=== PATIENT | female | born 1960 | race Caucasian/White ===

== ENCOUNTER → 2020-04-09 14:14 | Outpatient (CLI) | payer OTHER, SELFPAY | PROVIDERS: PCP Registered Nurse Diabetes Educator; Visit Provider Registered Nurse Diabetes Educator | DX: R39.15 Urgency of urination (principal) | CPT/HCPCS: 87077; 87086; 87186 ==

== ENCOUNTER → 2020-06-18 07:53 | Outpatient (CLI) | payer OTHER, SELFPAY ==
[2020-06-18 09:01] LABS: Add Manual Diff / Slide Review NO; Basophils Absolute Auto 0 /uL (0-100); Basophils Percent Auto 0.6 % (0-2); Eosinophils Absolute Auto 100 /uL (0-450); Eosinophils Percent Auto 2.2 % (2-4); Hematocrit 39.7 % (36-46); Hemoglobin 13.3 g/dL (12.0-16.0); Lymphocytes Absolute Auto 1200 /uL (1100-4500); Lymphocytes Percent Auto 28.4 % (25-40); Mean Corpuscular HGB Conc 33.5 % (30-36); Mean Corpuscular Hemoglobin 30.5 PG (26-34); Mean Corpuscular Volume 90.9 fL (80-100); Monocytes Absolute Auto 300 /uL (0-900); Monocytes Percent Auto 6.2 % (3-14); Neutrophils Absolute Auto 2600 /uL (1500-7000); Neutrophils Percent Auto 62.6 % (50-75); Platelet Count 232 X10^3/uL (150-400); Red Blood Cell Count 4.37 X10^6/uL (4.0-5.2); Red Cell Distribution Width 13.1 % (11.6-14.8); White Blood Cell Count 4.2 X10^3/uL (4.5-11.0)
[2020-06-18 09:58] LABS: Alanine Aminotransferase 17 IU/L (<35); Albumin 4.3 g/dL (3.5-5.0); Albumin Globulin Ratio 1.5 (1.0-2.8); Alkaline Phosphatase 87 U/L (38-126); Aspartate Aminotransferase 35 IU/L (14-36); BUN Creatinine Ratio 12.1 (6-22); Bilirubin Total 0.5 mg/dL (0.2-1.3); Blood Urea Nitrogen 12 mg/dL (7-17); Calcium 9.5 mg/dL (8.4-10.2); Carbon Dioxide 29 mmol/L (22-32); Chloride 99 mmol/L (98-107); Cholesterol 201 mg/dL (140-199); Globulin 2.8 g/dL (1.7-4.1); Glucose 90 mg/dL (80-110); HDL Cholesterol 79 mg/dL (40-60); HEMOLYSIS < 15 (0-50); LDL Cholesterol Calculated 109 mg/dL (<100); Potassium 4.8 mmol/L (3.4-5.1); Sodium 132 mmol/L (137-145); Total Protein 7.1 g/dL (6.3-8.2); Triglycerides 66 mg/dL (35-150)
[2020-06-18 10:01] LABS: HEMOLYSIS < 15 (0-50); Iron 116 ug/dL (37-170)
[2020-06-18 10:12] LABS: Percent Iron Saturation 32 % (15-50); Total Iron Binding Capacity 357 ug/dL (265-497); Transferrin 280 mg/dL (206-381)
[2020-06-18 10:26] LABS: Creatinine Urine Random 65.3 mg/dL; Ferritin 23 ng/mL (11-264)
[2020-06-18 10:29] LABS: Microalbumi Creatinin Ratio Ur 12.2 ug/mg CR (<30); Microalbumin Urine Random 0.8 mg/dL (0-1.6)
[2020-06-18 12:43] LABS: Free T4, Direct Thyroxine 1.56 ng/dL (0.78-2.19)
== END ==
PROVIDERS: PCP Registered Nurse Diabetes Educator; Referring Provider Registered Nurse Diabetes Educator; Visit Provider Registered Nurse Diabetes Educator
DX: Z00.00 Encounter for general adult medical examination without abnormal findings (principal); D64.9 Anemia, unspecified; E03.9 Hypothyroidism, unspecified; E11.9 Type 2 diabetes mellitus without complications; E89.0 Postprocedural hypothyroidism; R94.4 Abnormal results of kidney function studies
CPT/HCPCS: 36415; 80053; 80061; 82043; 82570; 82728; 83036; 83540; 83550; 84439; 84443; 85025

== ENCOUNTER → 2020-07-30 07:11 | Outpatient (CLI) | payer OTHER, SELFPAY ==
[2020-07-30 09:08] LABS: BUN Creatinine Ratio 12.3 (6-22); Blood Urea Nitrogen 13 mg/dL (7-17); Calcium 9.3 mg/dL (8.4-10.2); Carbon Dioxide 28 mmol/L (22-32); Chloride 106 mmol/L (98-107); Estimated Glomerular Filt Rate 52.5 mL/min (>60); Glucose 74 mg/dL (80-110); HEMOLYSIS < 15 (0-50); Potassium 4.3 mmol/L (3.4-5.1); Sodium 136 mmol/L (137-145)
[2020-07-30 10:13] LABS: Free T4, Direct Thyroxine 1.52 ng/dL (0.78-2.19)
== END ==
PROVIDERS: PCP Registered Nurse Diabetes Educator; Referring Provider Registered Nurse Diabetes Educator; Visit Provider Registered Nurse Diabetes Educator
DX: E87.1 Hypo-osmolality and hyponatremia (principal); E03.9 Hypothyroidism, unspecified
CPT/HCPCS: 36415; 80048; 84439; 84443

== ENCOUNTER → 2020-08-03 11:10 | Outpatient (CLI) | payer OTHER, SELFPAY ==
--- NOTE | 2020-08-03 11:12 | DI.US.S_ITS ---
PROCEDURE: US RENAL COMPLETE INDICATIONS: CKD3 TECHNIQUE: Real-time scanning was performed of the kidneys and bladder, with image documentation. COMPARISON: None. FINDINGS: Kidneys: Kidneys are normal in size. Mildly increased generalized kidney echogenicity can be seen. Right kidney measures 9.1 cm long; left kidney measures 8.7 cm long. Right renal cortical thickness is 1.3 cm; left renal cortical thickness is 1.5 cm. Renal cortical echotexture is normal. No hydronephrosis or nephrolithiasis. No suspicious solid mass lesions. Bladder: Pre-void bladder volume is 180 mL. Post-void residual is 43 mL. Pre-void images demonstrate no intraluminal masses or stones. On pre-void images, both ureteral jets are noted with color Doppler interrogation. (Of note, ureteral jets may not be detectable in up to 25% of cases due to insufficient differences in specific gravity between ureteral and bladder urine). Miscellaneous: No free pelvic fluid. IMPRESSION: Mildly increased generalized echogenicity can be seen of the kidneys, which is consistent with the given history of chronic renal disease. No hydronephrosis is seen. Moderate postvoid residual, 43 cc. Dictated by: Joseph Kelsey M.D. on 08/03/2020 at 12:59 Approved by: Joseph Kelsey M.D. on 08/03/2020 at 13:01
== END ==
PROVIDERS: PCP Registered Nurse Diabetes Educator; Referring Provider Registered Nurse Diabetes Educator; Visit Provider Registered Nurse Diabetes Educator
DX: N18.30 Chronic kidney disease, stage 3 unspecified (principal)
CPT/HCPCS: 76770

== ENCOUNTER → 2020-09-15 08:00 | Outpatient (CLI) | payer OTHER, SELFPAY ==
[2020-09-15 09:43] LABS: TSH w/ Reflex to FT4 4.77 uIU/mL (0.47-4.68)
== END ==
PROVIDERS: PCP Registered Nurse Diabetes Educator; Referring Provider Registered Nurse Diabetes Educator; Visit Provider Registered Nurse Diabetes Educator
DX: E89.0 Postprocedural hypothyroidism (principal)
CPT/HCPCS: 36415; 84439; 84443

== ENCOUNTER → 2020-10-20 08:36 | Outpatient (CLI) | payer OTHER, SELFPAY ==
[2020-10-20 10:30] LABS: TSH w/ Reflex to FT4 1.45 uIU/mL (0.47-4.68)
== END ==
PROVIDERS: PCP Registered Nurse Diabetes Educator; Referring Provider Registered Nurse Diabetes Educator; Visit Provider Registered Nurse Diabetes Educator
DX: E89.0 Postprocedural hypothyroidism (principal)
CPT/HCPCS: 36415; 84443

== ENCOUNTER → 2021-02-07 17:25 | Outpatient (CLI) | payer OTHER, SELFPAY ==
--- NOTE | 2021-02-07 17:26 | DI.RAD.S_ITS ---
PROCEDURE: XR RIBS LT MIN 3V W CXR1V INDICATIONS: eval pain and TTP L posterior ribcage x 4 months TECHNIQUE: 2 views of the left ribs were acquired, along with a single view chest. COMPARISON: None. FINDINGS: Surgical changes and devices: None. Bones and chest wall: No fractures or dislocations. No suspicious bony lesions. Overlying soft tissues appear unremarkable. Lungs and pleura: No pleural effusions or pneumothorax. Lungs appear clear. Mediastinum: Mediastinal contours appear normal. Heart size is normal. IMPRESSION: Normal for age, source of current rib pain symptoms is not seen. Dictated by: Bernabe Gonzalez M.D. on 02/08/2021 at 11:26 Approved by: Bernabe Gonzalez M.D. on 02/08/2021 at 11:27
== END ==
PROVIDERS: PCP Registered Nurse Diabetes Educator; Referring Provider Registered Nurse Diabetes Educator; Visit Provider Registered Nurse Diabetes Educator
DX: R07.81 Pleurodynia (principal)
CPT/HCPCS: 71101

== ENCOUNTER → 2021-03-14 10:08 | Outpatient (CLI) | payer OTHER, SELFPAY ==
--- NOTE | 2021-03-14 10:09 | DI.RAD.S_ITS ---
PROCEDURE: XR DEXA AXIAL SKELETON INDICATIONS: reeval osteopenia COMPARISON: None. FINDINGS: This blank DEXA report has been sent in error by the PACS system. The correct and complete report will be forthcoming in 1-2 days. Thank you for your patience and understanding. Dictated by: Aishwarya Borrero MD, PhD on 03/14/2021 at 11:28 Approved by: Aishwarya Borrero MD, PhD on 03/14/2021 at 11:28
== END ==
PROVIDERS: PCP Registered Nurse Diabetes Educator; Referring Provider Registered Nurse Diabetes Educator; Visit Provider Registered Nurse Diabetes Educator
DX: M85.88 Other specified disorders of bone density and structure, other site (principal); Z78.0 Asymptomatic menopausal state; E11.9 Type 2 diabetes mellitus without complications
CPT/HCPCS: 77080

== ENCOUNTER → 2021-07-05 09:05 | Outpatient (CLI) | payer OTHER, SELFPAY ==
[2021-07-05 12:14] LABS: COVID19 -Nasal RAPID Negative (Negative)
== END ==
PROVIDERS: PCP Registered Nurse Diabetes Educator; Visit Provider Surgery
DX: Z01.812 Encounter for preprocedural laboratory examination (principal); Z20.822 Contact with and (suspected) exposure to COVID-19
CPT/HCPCS: 87635; C9803

== ENCOUNTER 2021-07-08 06:41 | Day surgery (SDC) | payer OTHER, SELFPAY ==
[2021-07-08] VITALS (11 sets, daily range): BP systolic 96–130; BP diastolic 50–81; PULSE 44–64; RESP 10–99; TEMP 36.3–36.8; O2SAT 8–100; BMI 19.6
--- NOTE | 2021-07-08 | PATH_ITS ---
[facility] Accession Number: [id number] . 01 Material submitted: . colon - SIGMOID POLYP . 01 Clinical history: . SDC . 02 Diagnosis: Sigmoid Colon, Polyp, Biopsy: Tubular adenoma. MRV 07/11/2021 1248 Local . 02 Electronically signed: . Bella Brennan MD, Pathologist NPI- [id number] . 01 Gross description: . SIGMOID POLYP: Received in formalin is 1 fragment(s) of dennison, soft tissue measuring 0.6 x 0.3 x 0.2 cm submitted entirely in 1 cassette(s) /QBJ 07/09/2021 0918 Local . 02 Pathologist provided ICD-10: D12.5 . 02 CPT . 411039 Performed at: 01 [facility] [address] [id number] MD [place] MD Phone: [phone] Performed at: 02 [facility] [place] [address] [place], [place] [id number] MD Bella Brennan MD Phone: [phone]
[2021-07-08] MEDS: LACTATED RINGERS 1,000 ML 42 ML IV (07:34)
[2021-07-08] MEDS: fentaNYL 250 MCG/5 ML INJ IV (07:47)
[2021-07-08] MEDS: MIDAZOLAM 5 MG/5 ML VIAL IV (07:48)
--- NOTE | 2021-07-08 07:50 | P.HP_ITS ---
History of Present Illness History of Present Illness Date Patient Seen: 07/08/21 Time Patient Seen: 07:50 Chief complaint: SDC Narrative: The patient presents for colorectal sreening. Previous colonoscopy 10 years ago normal. No personal or family history of colon cancer. On further history denies any recent gastrointestinal symptoms. No nausea, vomiting, abdominal pain, loss of appetite, unexplained weight loss, change in bowel habits, diarrhea, constipation, melena, hematochezia, or bright red blood per rectum. Patient History Medical History Anemia CKD (chronic kidney disease) stage 3, GFR 30-59 ml/min Diabetes type 2, controlled Hypothyroidism Osteopenia Postprocedural hypothyroidism Postprocedural hypothyroidism Renal function test abnormal Family & Social History Family History Grandmother Hypertension Overweight Mother Age: 84 Pacemaker RA (rheumatoid arthritis) Social History: household members spouse Tobacco & Substance use: Smoking Status Never smoker alcohol intake frequency 0-2 drinks per day Substance Use Type does not use Meds Home Medications and Allergies Home Medications Medication Instructions Recorded Confirmed Type Synthroid 100 mcg tablet 100 mcg PO DAILY #90 tab NS 10/22/20 07/08/21 Rx (levothyroxine) metformin 500 mg tablet,extended 500 mg PO DAILY #90 tab 03/18/21 07/08/21 Rx release 24 hr Allergies Allergy/AdvReac Type Severity Reaction Status Date / Time No Known Drug Allergies Allergy Verified 07/08/21 07:05 Exam Vital Signs (past 8 hours): - 07/08/21 07:17 Temperature 98.1 F Pulse Rate 64 Respiratory Rate 16 Blood Pressure 130/81 Pulse Oximetry 99 Oxygen Delivery Method Room Air Narrative Exam Narrative: Constitutional-She is oriented to person, place and time. No apparent distress Cardiovascular- regular rate, no peripheral edema Pulmonary-unlabored respiratory effort, no audible wheezing Abdominal-soft, non-tender, non-distended Musculoskeletal-no cyanosis or clubbing Neurological-nonfocal, normal strength throughout, Assessment & Plan Assessment and plan (1) Screening for colon cancer: Status: Acute Assessment & Plan narrative: The patient requires colorectal screening and colonoscopy is recommended. Technical details were discussed. Risks, benefits, alternatives explained. Risks including but not limited to myocardial infarction, aspiration, bleeding, pain, missed lesion, incomplete examination, need for further radiographic studies, colonic perforation, and need for major abdominal surgery were discussed. All questions were answered to their satisf action, and they are in agreement with this plan. Time Spent With Patient Critical Care time: I spent a total of [] minutes of critical care time on this patient's care today; this time is exclusive of procedural time.
[2021-07-08] MEDS: ONDANSETRON 4 MG/2 ML INJ IV (07:53)
--- NOTE | 2021-07-08 08:17 | PM.OP.COLON ---
Operative Date/Time/Diagnoses Date of procedure: 07/08/21 Time of procedure: 08:18 Pre-op diagnosis: screening colonoscopy Post-op diagnosis: same Procedure & Clinicians Study performed: Colonoscopy Same procedure as scheduled: Yes Indications: Screening Surgeon: Surya Chu Procedure Notes Procedure in detail: Medications: Conscious sedation using 4 mg IV midazolam and 200mcg IV of fentanyl The history and physical was performed/updated and the patient is ASA class is 2. The procedure was discussed in detail with the patient. Potential risks complications including infection, bleeding, missed diagnosis, perforation, need for surgery, and were explained. Their questions were answered and informed consent was obtained. Patient was brought to the procedure room and placed standard monitoring equipment. The patient's vital signs were monitored continuously throughout the entire procedure. Prior to starting time-out was performed. The patient was placed in the left lateral recumbent position. Procedural sedation was administered. Examination began with a thorough inspection of the perianal area there was no evidence of fissures, fistulae, external hemorrhoids or cutaneous malignancy. The colonoscopy scope was then placed into the anal canal and was advanced to the cecum, which was identified by the ileocecal valve, the appendiceal orifice and the confluence of the taenia. The scope was then slowly withdrawn examining colon thoroughly in all directions, irrigating it of any residual stool. FINDINGS 1. 5 mm sigmoid polyp removed with biopsy forceps 2. No masses or colitis The patient tolerated the procedure well. They will be discharged once criteria are met. The prep was of good/excellent quality. The withdrawl time was 7 minutes. The sedation time was 22 minutes. Specimen(s): other (Sigmoid polyp) Complications: none Impression: Colonic polyp Post-procedure Recommendations: Colonoscopy in 5 years Disposition: same day surgery
[2021-07-08] MEDS: LACTATED RINGERS 1,000 ML 200 ML IV (09:12)
--- NOTE | 2021-07-08 09:22 | SUR.PHASEII ---
0915 Pt transferred to room 4 OPD with SBAR repot to Regina PATEL. Pt awake and alert, less sleepy now. No further nausea/dry heaves. Plan to rest for 15 more minutes and then re-eval for discharge.
--- NOTE | 2021-07-08 10:29 | SUR.PHASEII ---
pt was awaiting ride. Pt states she feels better and is ready to go home.
== END 2021-07-08 10:31 | disposition home or self-care (01) ==
PROVIDERS: PCP Registered Nurse Diabetes Educator; Referring Provider Surgery; Visit Provider Surgery
PROC: 0DJD8ZZ Inspection of Lower Intestinal Tract, Via Natural or Artificial Opening Endoscopic (ICD-10-PCS; CPT 45378; principal; 2021-07-08 07:45)
DX: Z12.11 Encounter for screening for malignant neoplasm of colon (principal); E11.9 Type 2 diabetes mellitus without complications; E03.9 Hypothyroidism, unspecified; N18.30 Chronic kidney disease, stage 3 unspecified; D12.5 Benign neoplasm of sigmoid colon
CPT/HCPCS: 45380; 82962; 99152; J2250; J2405; J3010

== ENCOUNTER → 2021-07-12 07:00 | Outpatient (CLI) | payer OTHER, SELFPAY ==
[2021-07-12 08:22] LABS: Appearance Urine UA CLEAR; Bilirubin Urine UA NEGATIVE (NEGATIVE); Color Urine UA YELLOW; Glucose Urine UA NEGATIVE (Negative); Ketones Urine UA NEGATIVE (NEGATIVE); Leukocyte Esterase Urine UA NEGATIVE (NEGATIVE); Nitrite Urine UA NEGATIVE (Negative); Occult Blood Urine UA NEGATIVE (Negative); Protein Urine UA NEGATIVE (Negative); Urobilinogen Urine UA 0.2 E.U./dL (0.2)
[2021-07-12 08:28] LABS: Bacteria Urine None Seen; Culture Indicated Urine Cult Not Indicated; RBC Urine None Seen (0-5/HPF); Urine Comments Microscopic Normal; WBC Urine None Seen (0-5/HPF)
[2021-07-12 08:30] LABS: Hemoglobin A1C% w Est Avg Glu 5.3 % (4.0-6.0)
[2021-07-12 08:32] LABS: Hematocrit 34.5 % (36-46); Hemoglobin 11.7 g/dL (12.0-16.0); Mean Corpuscular Hemoglobin 30.7 PG (26-34); Mean Corpuscular Volume 90.1 fL (80-100); Platelet Count 267 X10^3/uL (150-400); Red Blood Cell Count 3.83 X10^6/uL (4.0-5.2); Red Cell Distribution Width 13.3 % (11.6-14.8); White Blood Cell Count 4.4 X10^3/uL (4.5-11.0)
[2021-07-12 08:47] LABS: Alanine Aminotransferase 14 IU/L (<35); Albumin 4.2 g/dL (3.5-5.0); Albumin Globulin Ratio 1.6 (1.0-2.8); Alkaline Phosphatase 65 U/L (38-126); Aspartate Aminotransferase 30 IU/L (14-36); Bilirubin Total 0.5 mg/dL (0.2-1.3); Blood Urea Nitrogen 10 mg/dL (7-17); Calcium 9.4 mg/dL (8.4-10.2); Carbon Dioxide 29 mmol/L (22-32); Chloride 103 mmol/L (98-107); Cholesterol 196 mg/dL (140-199); Estimated Glomerular Filt Rate 49.6 mL/min (>60); Globulin 2.7 g/dL (1.7-4.1); Glucose 93 mg/dL (80-110); HDL Cholesterol 85 mg/dL (40-60); HEMOLYSIS < 15 (0-50); LDL Cholesterol Calculated 97 mg/dL (<100); Potassium 3.8 mmol/L (3.4-5.1); Sodium 137 mmol/L (137-145); Total Protein 6.9 g/dL (6.3-8.2); Triglycerides 72 mg/dL (35-150)
[2021-07-12 09:00] LABS: Microalbumin Urine Random < 0.6 mg/dL (0-1.6)
[2021-07-12 09:21] LABS: TSH w/ Reflex to FT4 8.01 uIU/mL (0.47-4.68)
[2021-07-12 09:49] LABS: Free T4, Direct Thyroxine 1.38 ng/dL (0.78-2.19)
== END ==
PROVIDERS: PCP Registered Nurse Diabetes Educator; Referring Provider Registered Nurse Diabetes Educator; Visit Provider Registered Nurse Diabetes Educator
DX: E03.9 Hypothyroidism, unspecified (principal); E11.9 Type 2 diabetes mellitus without complications; N18.30 Chronic kidney disease, stage 3 unspecified
CPT/HCPCS: 36415; 80053; 80061; 81001; 82043; 82570; 83036; 84439; 84443; 85027

== ENCOUNTER → 2021-08-13 07:46 | Outpatient (CLI) | payer OTHER, SELFPAY | PROVIDERS: PCP Registered Nurse Diabetes Educator; Visit Provider Nurse Practitioner Family | DX: N39.0 Urinary tract infection, site not specified (principal) | CPT/HCPCS: 87077; 87086; 87186 ==

== ENCOUNTER → 2021-08-30 08:28 | Outpatient (CLI) | payer OTHER, SELFPAY ==
[2021-08-30 10:05] LABS: Hemoglobin 12.7 g/dL (12.0-16.0); Mean Corpuscular HGB Conc 34.2 % (30-36); Mean Corpuscular Hemoglobin 30.4 PG (26-34); Mean Corpuscular Volume 88.9 fL (80-100); Platelet Count 282 X10^3/uL (150-400); Red Blood Cell Count 4.16 X10^6/uL (4.0-5.2); Red Cell Distribution Width 12.4 % (11.6-14.8); White Blood Cell Count 5.9 X10^3/uL (4.5-11.0)
[2021-08-30 10:43] LABS: BUN Creatinine Ratio 13.6 (6-22); Blood Urea Nitrogen 14 mg/dL (7-17); Calcium 9.6 mg/dL (8.4-10.2); Carbon Dioxide 30 mmol/L (22-32); Chloride 102 mmol/L (98-107); Estimated Glomerular Filt Rate 54.1 mL/min (>60); Glucose 83 mg/dL (80-110); HEMOLYSIS < 15 (0-50); Potassium 3.7 mmol/L (3.4-5.1); Sodium 135 mmol/L (137-145)
[2021-08-30 11:11] LABS: TSH w/ Reflex to FT4 1.26 uIU/mL (0.47-4.68)
== END ==
PROVIDERS: PCP Registered Nurse Diabetes Educator; Referring Provider Registered Nurse Diabetes Educator; Visit Provider Registered Nurse Diabetes Educator
DX: D64.9 Anemia, unspecified (principal); E03.9 Hypothyroidism, unspecified; N18.31 Chronic kidney disease, stage 3a
CPT/HCPCS: 36415; 80048; 84443; 85027

== ENCOUNTER → 2021-09-30 16:07 | Outpatient (CLI) | payer OTHER, SELFPAY | PROVIDERS: PCP Registered Nurse Diabetes Educator; Visit Provider Registered Nurse Diabetes Educator | DX: R30.0 Dysuria (principal) | CPT/HCPCS: 87077; 87086; 87186 ==

== ENCOUNTER → 2021-11-04 09:29 | Outpatient (CLI) | payer OTHER, SELFPAY ==
--- NOTE | 2021-11-04 09:31 | DI.RAD.S_ITS ---
PROCEDURE: XR THORACIC SPINE 3V INDICATIONS: eval upper to mid back pain, no trauma TECHNIQUE: 3 views of the thoracic spine were acquired. COMPARISON: None. FINDINGS: Bones: Age indeterminate mild anterior wedge compression deformity at T8 level is seen with up to 32% loss of T8 vertebral body height anteriorly. Mild kyphosis centered at T7-8 level is also seen. Degenerative endplate changes are noted throughout mid to lower thoracic spine. No other compression fracture is seen. No suspicious bony lesions. 12 pairs of ribs are noted, and appear intact where visualized. Soft tissues: No paravertebral stripe thickening. IMPRESSION: Age indeterminate anterior wedge compression deformity at T8 level with up to 32% loss of T8 vertebral body height anteriorly. No other compression fracture or spondylolisthesis. Mild kyphosis centered at T7-8 level. Dictated by: Arlye Durant M.D. on 11/04/2021 at 11:05 Approved by: Arley Durant M.D. on 11/04/2021 at 11:07
== END ==
PROVIDERS: PCP Registered Nurse Diabetes Educator; Referring Provider Registered Nurse Diabetes Educator; Visit Provider Registered Nurse Diabetes Educator
DX: M48.54XA Collapsed vertebra, not elsewhere classified, thoracic region, initial encounter for fracture (principal); M40.204 Unspecified kyphosis, thoracic region; M54.6 Pain in thoracic spine
CPT/HCPCS: 72072

== ENCOUNTER → 2021-11-08 07:29 | Outpatient (CLI) | payer OTHER, SELFPAY ==
[2021-11-08 09:00] LABS: Vitamin D 25 Hydroxy (D3) 36.3 ng/mL (30.0-100.0)
== END ==
PROVIDERS: PCP Registered Nurse Diabetes Educator; Referring Provider Registered Nurse Diabetes Educator; Visit Provider Registered Nurse Diabetes Educator
DX: M85.80 Other specified disorders of bone density and structure, unspecified site (principal)
CPT/HCPCS: 36415; 82306

== ENCOUNTER → 2021-12-06 10:46 | Outpatient (CLI) | payer OTHER, SELFPAY ==
--- NOTE | 2021-12-06 | DI.RAD.S_ITS ---
PROCEDURE: XR KNEE LT 3V INDICATIONS: LEFT KNEE PAIN TECHNIQUE: 3 views of the knee were acquired. COMPARISON: None. FINDINGS: Bones: No fractures or dislocations. No suspicious bony lesions. Soft tissues: No joint effusion. No suspicious soft tissue calcifications. IMPRESSION: No evidence acute bony abnormality of the left knee If clinical suspicion and/or symptoms persist, further assessment with repeat plain films, or advanced imaging (e.g., CT, MRI, or bone scan) may be helpful for further assessment. Dictated by: Judah Pickett M.D. on 12/06/2021 at 15:25 Approved by: Judah Pickett M.D. on 12/06/2021 at 15:26
== END ==
PROVIDERS: PCP Registered Nurse Diabetes Educator; Referring Provider Family Medicine; Visit Provider Family Medicine
DX: M25.562 Pain in left knee (principal)
CPT/HCPCS: 73562

== ENCOUNTER → 2021-12-13 07:22 | Outpatient (CLI) | payer OTHER, SELFPAY ==
[2021-12-13 08:41] LABS: TSH w/ Reflex to FT4 0.16 uIU/mL (0.47-4.68)
[2021-12-13 09:11] LABS: Free T4, Direct Thyroxine 2.52 ng/dL (0.78-2.19)
== END ==
PROVIDERS: PCP Registered Nurse Diabetes Educator; Referring Provider Registered Nurse Diabetes Educator; Visit Provider Registered Nurse Diabetes Educator
DX: E03.9 Hypothyroidism, unspecified (principal)
CPT/HCPCS: 36415; 84439; 84443

== ENCOUNTER → 2022-01-21 12:43 | Outpatient (CLI) | payer OTHER, SELFPAY ==
[2022-01-21 14:24] LABS: TSH w/ Reflex to FT4 4.08 uIU/mL (0.47-4.68)
== END ==
PROVIDERS: PCP Registered Nurse Diabetes Educator; Referring Provider Registered Nurse Diabetes Educator; Visit Provider Registered Nurse Diabetes Educator
DX: E03.9 Hypothyroidism, unspecified (principal)
CPT/HCPCS: 36415; 84443

== ENCOUNTER → 2022-02-28 07:28 | Outpatient (CLI) | payer OTHER, SELFPAY ==
[2022-02-28 09:18] LABS: TSH w/ Reflex to FT4 3.16 uIU/mL (0.47-4.68)
== END ==
PROVIDERS: PCP Registered Nurse Diabetes Educator; Referring Provider Registered Nurse Diabetes Educator; Visit Provider Registered Nurse Diabetes Educator
DX: E03.9 Hypothyroidism, unspecified (principal)
CPT/HCPCS: 36415; 84443

== ENCOUNTER → 2022-06-04 11:34 | Outpatient (CLI) | payer OTHER, SELFPAY ==
--- NOTE | 2022-06-04 | DI.MG.S_ITS ---
BILATERAL DIGITAL SCREENING MAMMOGRAM 3D/2D WITH CAD: 06/04/2022 CLINICAL: Routine screening. Comparison is made to exams dated: 04/25/2021 mammogram and 04/20/2020 mammogram - Outside facility. Both breasts are heterogeneously dense, which may obscure small masses (category c / 51-75% glandular tissue). Current study was also evaluated with a Computer Aided Detection (CAD) system. No significant masses, calcifications, or other findings are seen in either breast. There has been no significant interval change. IMPRESSION: NEGATIVE There is no mammographic evidence of malignancy. A 1 year screening mammogram is recommended. Based on the Tyrer Cuzick model (a risk assessment model) the patient's lifetime risk is 10.8% and her 10 year risk is 4.9%. According to the ACR, ACS, and NCCN guidelines, an annual breast MRI exam along with mammogram is recommended if the patient's lifetime risk is 20% or greater. This exam was interpreted at Station ID: [id number]. NOTE: For mammograms, a report in lay terms will be sent to the patient. Approximately 15% of breast malignancies will not be visualized mammographically. In the management of a palpable breast mass, a negative mammogram must not discourage biopsy of a clinically suspicious lesion. Electronically Signed By: uQinton centeno/gera:06/04/2022 13:53:51 letter sent: Normal Exam ACR BI-RADS Category 1: Negative [id number]
== END ==
PROVIDERS: PCP Registered Nurse Diabetes Educator; Referring Provider Registered Nurse Diabetes Educator; Visit Provider Registered Nurse Diabetes Educator
DX: Z12.31 Encounter for screening mammogram for malignant neoplasm of breast (principal)
CPT/HCPCS: 77063; 77067

== ENCOUNTER → 2022-06-11 12:53 | Outpatient (CLI) | payer OTHER, SELFPAY ==
[2022-06-11 13:16] LABS: Hematocrit 35.2 % (36-46); Hemoglobin 11.9 g/dL (12.0-16.0); Mean Corpuscular HGB Conc 33.8 % (30-36); Mean Corpuscular Hemoglobin 30.4 PG (26-34); Mean Corpuscular Volume 89.8 fL (80-100); Platelet Count 225 X10^3/uL (150-400); Red Blood Cell Count 3.92 X10^6/uL (4.0-5.2); Red Cell Distribution Width 13.3 % (11.6-14.8); White Blood Cell Count 5.9 X10^3/uL (4.5-11.0)
[2022-06-11 13:32] LABS: Alanine Aminotransferase 20 IU/L (<35); Albumin Globulin Ratio 1.3 (1.0-2.8); Alkaline Phosphatase 68 U/L (38-126); Aspartate Aminotransferase 35 IU/L (14-36); BUN Creatinine Ratio 15.5 (6-22); Bilirubin Total 0.2 mg/dL (0.2-1.3); Blood Urea Nitrogen 13 mg/dL (7-17); Calcium 8.8 mg/dL (8.4-10.2); Carbon Dioxide 28 mmol/L (22-32); Chloride 100 mmol/L (98-107); Cholesterol 187 mg/dL (140-199); Estimated Glomerular Filt Rate > 60 mL/min (>60); Glucose 88 mg/dL (80-110); HDL Cholesterol 66 mg/dL (40-60); HEMOLYSIS < 15 (0-50); LDL Cholesterol Calculated 104 mg/dL (<100); Sodium 133 mmol/L (137-145); Triglycerides 86 mg/dL (35-150)
[2022-06-11 14:08] LABS: TSH w/ Reflex to FT4 3.51 uIU/mL (0.47-4.68)
[2022-06-11 15:19] LABS: Creatinine Urine Random 43.6 mg/dL
[2022-06-11 15:23] LABS: Microalbumi Creatinin Ratio Ur 13.7 ug/mg CR (<30); Microalbumin Urine Random 0.6 mg/dL (0-1.6)
[2022-06-11 17:54] LABS: Hemoglobin A1C% w Est Avg Glu 5.7 % (4.0-6.0)
== END ==
PROVIDERS: PCP Registered Nurse Diabetes Educator; Referring Provider Registered Nurse Diabetes Educator; Visit Provider Registered Nurse Diabetes Educator
DX: D64.89 Other specified anemias (principal); E03.9 Hypothyroidism, unspecified; E11.9 Type 2 diabetes mellitus without complications; E89.0 Postprocedural hypothyroidism; N18.31 Chronic kidney disease, stage 3a; R94.4 Abnormal results of kidney function studies
CPT/HCPCS: 36415; 80053; 80061; 82043; 82570; 83036; 84443; 85027

== ENCOUNTER → 2022-06-24 10:08 | Outpatient (CLI) | payer OTHER, SELFPAY ==
--- NOTE | 2022-06-24 10:09 | DI.RAD.S_ITS ---
PROCEDURE: XR RIBS LT 2V INDICATIONS: LEFT rib pain since coughing TECHNIQUE: 2 views of the left ribs were acquired. COMPARISON: None. FINDINGS: Surgical changes and devices: None. Bones and chest wall: No fractures or dislocations. No suspicious bony lesions. Overlying soft tissues appear unremarkable. Lungs and pleura: The visualized lung appears clear. No pleural effusions or pneumothorax are visible. IMPRESSION: No displaced fracture. If there is high concern for occult injury, consider repeat radiography or cross-sectional imaging. Dictated by: Chase Marroquin M.D. on 06/24/2022 at 13:30 Approved by: Chase Marroquin M.D. on 06/24/2022 at 13:31
== END ==
PROVIDERS: PCP Registered Nurse Diabetes Educator; Referring Provider Registered Nurse Diabetes Educator; Visit Provider Registered Nurse Diabetes Educator
DX: R07.81 Pleurodynia (principal)
CPT/HCPCS: 71100

== ENCOUNTER → 2022-12-04 07:56 | Outpatient (CLI) | payer OTHER, SELFPAY ==
[2022-12-04 08:30] LABS: Hemoglobin 12.5 g/dL (12.0-16.0); Mean Corpuscular HGB Conc 33.8 % (30-36); Mean Corpuscular Hemoglobin 30.4 PG (26-34); Mean Corpuscular Volume 89.8 fL (80-100); Platelet Count 233 X10^3/uL (150-400); Red Blood Cell Count 4.12 X10^6/uL (4.0-5.2); Red Cell Distribution Width 13.2 % (11.6-14.8); White Blood Cell Count 5.1 X10^3/uL (4.5-11.0)
[2022-12-04 09:25] LABS: TSH w/ Reflex to FT4 2.76 uIU/mL (0.47-4.68)
[2022-12-05 01:07] LABS: Labcorp Hemoglobin (Hb) A1c 6.1 % (4.8-5.6)
== END ==
PROVIDERS: PCP Registered Nurse Diabetes Educator; Referring Provider Registered Nurse Diabetes Educator; Visit Provider Registered Nurse Diabetes Educator
DX: D64.89 Other specified anemias (principal); E11.9 Type 2 diabetes mellitus without complications; E89.0 Postprocedural hypothyroidism
CPT/HCPCS: 36415; 83036; 84443; 85027

== ENCOUNTER → 2023-03-27 14:46 | Outpatient (CLI) | payer OTHER, SELFPAY ==
--- NOTE | 2023-03-27 14:48 | DI.RAD.S_ITS ---
Bone Density Report Name: AMBROSIO JARRETT Age: 62 Sex: Female Ethnicity: White Date of : 1960 Indication: osteopenia; monitoring treatment; Referring Provider: ANGELIKA RIZO Study: Bone densitometry was performed. Exam Date: March 27, 2023 Accession number: [id number] Bone Density: Region BMD T-score Z-score Classification AP Spine(L1-L4) 0.902 -1.3 0.4 Osteopenia Femoral Neck (Left) 0.707 -1.3 0.2 Osteopenia Total Hip (Left) 0.795 -1.2 0.0 Osteopenia Femoral Neck (Right) 0.720 -1.2 0.3 Osteopenia Total Hip (Right) 0.777 -1.3 -0.1 Osteopenia Total Hip Mean 0.786 -1.3 -0.1 Osteopenia World Health Organization criteria for BMD impression classify patients as: Normal (T-score at or above -1.0), Osteopenia (T-score between -1.0 and -2.5), or Osteoporosis (T-score at or below -2.5). 10-year Fracture Risk: FRAX not reported because: Treated for osteoporosis Previous Exams: -- Region Exam Age BMD T-score BMD Change BMD Change Date g/cm2 vs Baseline vs Previous -- AP Spine (L1-L4) 03/27/2023 62 0.902 -1.3 0.065 (7.8%)# 0.065 (7.8%)# 03/14/2021 60 0.837 -1.9 Total Hip(Left) 03/27/2023 62 0.795 -1.2 0.024 (3.1%)# 0.024 (3.1%)# 03/14/2021 60 0.771 -1.4 Total Hip(Right) 03/27/2023 62 0.777 -1.3 -0.019 (-2.4%)# -0.019 (-2.4%)# 03/14/2021 60 0.797 -1.2 -- *Denotes significance at 95% confidence level, LSC for AP Spine = 0.022 g/cm2, LSC for Total Hip = 0.027 g/cm2 # Denotes dissimilar scan types or analysis methods Impression: The patient has low bone mass, based on the Total Spine T-score. No significant bone loss was observed. Discussion: PATIENT UNDER TREATMENT WITH NO SIGNIFICANT BMD LOSS SINCE LAST EXAM. In an untreated patient, BMD typically declines with age. A lack of decline or gain is usually a sign that treatment is efficacious and fracture risk is reduced. It is important to ask patients whether they are taking their medications and to encourage continued and appropriate compliance with their osteoporosis therapies to reduce fracture risk. It is also important to review their risk factors and encourage appropriate calcium and vitamin D intakes, exercise, fall prevention and other lifestyle measures. Follow-Up: Consider a repeat BMD and Vertebral Fracture Assessment (VFA) exam in 2 years or sooner if medically necessary, to reassess this patient's status. Reported by: ARYA CLARK M.D. on 03/27/2023 3:40:00 PM.
== END ==
PROVIDERS: PCP Registered Nurse Diabetes Educator; Referring Provider Registered Nurse Diabetes Educator; Visit Provider Registered Nurse Diabetes Educator
DX: M81.0 Age-related osteoporosis without current pathological fracture; Z87.310 Personal history of (healed) osteoporosis fracture; Z78.0 Asymptomatic menopausal state; Z79.83 Long term (current) use of bisphosphonates; Z92.23 Personal history of estrogen therapy
CPT/HCPCS: 77080

== ENCOUNTER 2023-05-12 13:33 | Day surgery (SDC) | payer OTHER, SELFPAY ==
[2023-05-12 13:49] VITALS: BMI 18.9
[2023-05-12 14:10] VITALS: BP 131/71; PULSE 50; RESP 16; TEMP 36.6; O2SAT 100
[2023-05-12] MEDS: LACTATED RINGERS 1,000 ML 42 ML IV (14:11)
[2023-05-12] MEDS: DEXTROSE 5% WATER 250 ML 100 ML IV (14:44)
--- NOTE | 2023-05-12 14:45 | P.HP_ITS ---
History of Present Illness History of Present Illness Date Patient Seen: 05/12/23 Time Patient Seen: 14:45 Chief complaint: Colonoscopy Narrative: 62-year-old woman with recent rectal bleeding here for diagnostic colonoscopy possible hemorrhoidal banding. Please refer to the H and P from March 2023 for further detail. No interval changes in health. [facility] Medical History Anemia Chronic pain of left knee CKD (chronic kidney disease) stage 3, GFR 30-59 ml/min Compression fracture of T8 vertebra Diabetes type 2, controlled H/O healed fragility fracture Hypothyroidism Osteopenia Postprocedural hypothyroidism Postprocedural hypothyroidism Renal function test abnormal Family History Grandmother Hypertension Overweight Mother Age: 86 Pacemaker RA (rheumatoid arthritis) Social History marital status: household members: spouse lives independently: Yes occupational status: previously employed Smoking Status: Never smoker alcohol intake: current substance use type: does not use Meds Home Medications and Allergies Home Medications Medication Instructions Recorded Confirmed Type fluticasone 250 mcg-salmeterol 50 1 inh inhalation Q12H #60 ea 06/16/22 05/12/23 Rx mcg/dose blistr powdr for inhalation (Advair Diskus) Synthroid 100 mcg tablet 100 mcg PO DAILY #90 tabs 12/12/22 05/12/23 Rx (levothyroxine) alendronate 70 mg tablet (Fosamax) 70 mg PO QWEEK #12 tabs 12/12/22 05/12/23 Rx metformin 500 mg tablet,extended 500 mg PO DAILY #90 tabs 12/12/22 05/12/23 Rx release 24 hr iron 40 mg capsule 40 mg PO DAILY 05/12/23 05/12/23 History Allergies Allergy/AdvReac Type Severity Reaction Status Date / Time No Known Drug Allergies Allergy Verified 05/12/23 13:46 Exam Vital Signs (past 8 hours): - 05/12/23 14:10 Temperature 97.9 F Pulse Rate 50 L Respiratory Rate 16 Blood Pressure 131/71 Pulse Oximetry 100 Oxygen Delivery Method Room Air Oxygen Delivery Method Room Air Narrative Exam Narrative: General adult woman alert oriented no acute distress Abdomen soft nontender nondistended Assessment & Plan Assessment and plan (1) Rectal Hemorrhage: Status: Acute Assessment & Plan narrative: 62-year-old woman with rectal bleeding here for diagnostic colonoscopy possible hemorrhoidal banding. Overview of the procedure was discussed. Procedural risks including bleeding, missed diagnosis, anal stenosis, hemorrhoid recurrence discussed. Questions have been answered she is in agreement with this plan
--- NOTE | 2023-05-12 14:46 | SUR.PREOP ---
Toño EVANS notified of patient CBG 62. States she usually runs 84 in the morning before eating. Currently feels ok just tired and like I don't want to stand up too long
--- NOTE | 2023-05-12 15:18 | P.OP.COLON_ITS ---
Operative Date/Time/Diagnoses Date of procedure: 05/12/23 Time of procedure: 15:18 Pre-op diagnosis: Rectal bleeding Post-op diagnosis: same Procedure & Clinicians Study performed: Colonoscopy, hemorrhoidal banding Same procedure as scheduled: Yes Indications: 62-year-old woman with rectal bleeding here for diagnostic colonoscopy. Surgeon: Surya Chu Procedure Notes Procedure in detail: The history and physical was performed/updated and the patient is ASA class is 2. The procedure was discussed in detail with the patient. Potential risks complications including infection, bleeding, missed diagnosis, perforation, need for surgery, and were explained. Their questions were answered and informed consent was obtained. Patient was brought to the procedure room and placed standard monitoring equipment. The patient's vital signs were monitored continuously throughout the entire procedure. Prior to starting time-out was performed. The patient was placed in the left lateral recumbent position. Procedural sedation was ad ministered by anesthesia. Examination began with a thorough inspection of the perianal area there was no evidence of fissures, fistulae, external hemorrhoids or cutaneous malignancy. The colonoscopy scope was then placed into the anal canal and was advanced to the cecum, which was identified by the ileocecal valve, the appendiceal orifice and the confluence of the taenia. The scope was then slowly withdrawn examining colon thoroughly in all directions, irrigating it of any residual stool. No masses or polyps. Grade 1 internal hemorrhoids Following completion of the colonoscopy. The anoscope was inserted. Grade 1 internal hemorrhoid present at the left lateral position. The hemorrhoid was grasped with suctioned ligated and then doubly ligated at its base. Tolerated the procedure well. The patient tolerated the procedure well. They will be discharged once criteria are met. The prep was of good/excellent quality. The withdrawl time was 7 minutes. Specimen(s): none sent Impression: Internal hemorrhoids Post-procedure Recommendations: Colonoscopy in 10 years Disposition: same day surgery
[2023-05-12 15:20] VITALS: BP 96/52; PULSE 67; RESP 14; TEMP 36.8; O2SAT 96
[2023-05-12 15:25] VITALS: BP 95/51; PULSE 62; RESP 16; TEMP 36.8; O2SAT 97
[2023-05-12 15:34] VITALS: BP 112/62; PULSE 51; RESP 12; O2SAT 100
[2023-05-12 15:45] VITALS: BP 150/71; PULSE 60; RESP 15; TEMP 36.3; O2SAT 100
== END 2023-05-12 16:00 | disposition home or self-care (01) ==
PROVIDERS: PCP Registered Nurse Diabetes Educator; Referring Provider Surgery; Visit Provider Surgery
PROC: 0DJD8ZZ Inspection of Lower Intestinal Tract, Via Natural or Artificial Opening Endoscopic (ICD-10-PCS; CPT 45378; principal; 2023-05-12 14:30)
DX: K62.5 Hemorrhage of anus and rectum (principal); K64.0 First degree hemorrhoids
CPT/HCPCS: 45378; 46221; 82962; J2704

== ENCOUNTER → 2023-06-11 07:18 | Outpatient (CLI) | payer MEDICARE, OTHER, SELFPAY ==
[2023-06-11 07:34] LABS: Hematocrit 37.9 % (36-46); Hemoglobin 13.1 g/dL (12.0-16.0); Mean Corpuscular HGB Conc 34.5 % (30-36); Mean Corpuscular Hemoglobin 31.1 PG (26-34); Mean Corpuscular Volume 90.1 fL (80-100); Platelet Count 256 X10^3/uL (150-400); Red Blood Cell Count 4.21 X10^6/uL (4.0-5.2); Red Cell Distribution Width 12.9 % (11.6-14.8); White Blood Cell Count 4.9 X10^3/uL (4.5-11.0)
[2023-06-11 07:49] LABS: Hemoglobin A1C% w Est Avg Glu 6.1 % (4.0-6.0)
[2023-06-11 08:00] LABS: Alanine Aminotransferase 18 IU/L (<35); Albumin 4.4 g/dL (3.5-5.0); Albumin Globulin Ratio 1.4 (1.0-2.8); Alkaline Phosphatase 65 U/L (38-126); Aspartate Aminotransferase 32 IU/L (14-36); BUN Creatinine Ratio 12.1 (6-22); Bilirubin Total 0.4 mg/dL (0.2-1.3); Blood Urea Nitrogen 11 mg/dL (7-17); Calcium 9.4 mg/dL (8.4-10.2); Carbon Dioxide 25 mmol/L (22-32); Chloride 103 mmol/L (98-107); Cholesterol 225 mg/dL (140-199); Estimated Glomerular Filt Rate > 60 mL/min (>60); Globulin 3.2 g/dL (1.7-4.1); Glucose 89 mg/dL (80-110); HDL Cholesterol 78 mg/dL (40-60); HEMOLYSIS < 15 (0-50); LDL Cholesterol Calculated 131 mg/dL (<100); Sodium 137 mmol/L (137-145); Total Protein 7.6 g/dL (6.3-8.2); Triglycerides 79 mg/dL (35-150)
[2023-06-11 08:28] LABS: TSH w/ Reflex to FT4 3.02 uIU/mL (0.47-4.68)
[2023-06-11 10:00] LABS: Creatinine Urine Random 56.5 mg/dL
[2023-06-11 10:04] LABS: Microalbumin Urine Random < 0.6 mg/dL (0-1.6)
== END ==
PROVIDERS: PCP Registered Nurse Diabetes Educator; Referring Provider Registered Nurse Diabetes Educator; Visit Provider Registered Nurse Diabetes Educator
DX: E89.0 Postprocedural hypothyroidism (principal); E11.9 Type 2 diabetes mellitus without complications; D64.9 Anemia, unspecified
CPT/HCPCS: 36415; 80053; 80061; 82043; 82570; 83036; 84443; 85027

== ENCOUNTER 2023-07-03 12:46 | Emergency (ER) | payer MEDICARE, OTHER, SELFPAY ==
[2023-07-03] VITALS (7 sets, daily range): BP systolic 128–153; BP diastolic 63–78; PULSE 57–64; RESP 18; TEMP 37.1; O2SAT 96–100; BMI 20.5
--- NOTE | 2023-07-03 13:10 | DI.CT.S_ITS ---
PROCEDURE: CT CHEST ABD PEL WO CON INDICATIONS: fall off ladder, midline pain TECHNIQUE: After the administration of oral contrast, 5 mm thick sections acquired from the lung apices to the symphysis pubis. 5 mm thick coronal and sagittal reformats acquired, with additional 7 mm coronal MIP reformats through the lungs. For radiation dose reduction, the following was used: automated exposure control, adjustment of mA and/or kV according to patient size. COMPARISON: None. FINDINGS: Image quality: Excellent. CHEST: Lungs and pleura: No acute pulmonary opacities. No pleural effusions or pneumothorax. Central and peripheral airways are patent are normal in caliber. Mediastinum: Heart size is normal. No pericardial effusion. No mediastinal adenopathy by CT size criteria. Thoracic aorta and central pulmonary arteries are normal in size. Esophagus is normal in caliber. No hiatal hernia. Chest wall: No axillary or supraclavicular adenopathy by size criteria. Thyroid gland is diminutive if it is visualized. . ABDOMEN: Solid organs: Liver is normal in size. Gallbladder is unremarkable without calcified gallstones. . Pancreas is normal in contours. Spleen is normal in size. No adrenal nodules. Both kidneys are normal in size, without hydronephrosis or nephrolithiasis. Peritoneum and bowel: Small and large bowel loops are normal in caliber and wall thickness. No free fluid or air. Nodes and vessels: No retroperitoneal or mesenteric adenopathy by size criteria. Aorta and inferior vena cava are normal in size. Miscellaneous: No ventral hernias. PELVIS: Genitourinary: Bladder wall thickness is normal. Miscellaneous: No inguinal hernias or adenopathy. Bones: No suspicious bony lesions. No vertebral body compression fractures. The bones are diffusely osteopenic. There are multiple compression fractures noted. A mild superior endplate compression fracture of T5 may be acute. Compression fractures of T7, T8, and T9, and T11 are chronic. No pelvic fractures or displaced rib fractures noted. IMPRESSION: 1. Diffuse osteopenia. A T5 compression fracture may be acute. Other compression fractures are chronic. 2. No other significant findings in the setting of acute trauma in the chest, abdomen, and pelvis. Comment: Nonemergent thoracic spine MRI may be helpful to determine T5 fracture acuity. Dictated by: Judah Pickett M.D. on 07/03/2023 at 14:01 Approved by: Judah Pickett M.D. on 07/03/2023 at 14:03
--- NOTE | 2023-07-03 13:10 | DI.CT.S_ITS ---
PROCEDURE: CT HEAD/BRAIN WO CON INDICATIONS: FALL FROM LADDER, LOC TECHNIQUE: Noncontrast 4.5 mm thick angled axial sections acquired from the foramen magnum to the vertex, with coronal and sagittal reformats. For radiation dose reduction, the following was used: automated exposure control, adjustment of mA and/or kV according to patient size. COMPARISON: None. FINDINGS: Image quality: Excellent. CSF spaces: Basal cisterns are patent. No extra-axial fluid collections. The ventricles are symmetric in size and shape. Brain: No intracranial bleeds or masses. There is cerebral volume loss for age, with resultant ventricular and sulcal prominence. There are periventricular and deep white matter chronic small vessel ischemic changes. There is intracranial internal carotid artery atherosclerosis. Skull and face: Calvarium and visualized facial bones appear intact, without suspicious lesions. Sinuses: Visualized sinuses and mastoids are clear. IMPRESSION: No acute intracranial process Dictated by: Judah Pickett M.D. on 07/03/2023 at 13:54 Approved by: Judah Pickett M.D. on 07/03/2023 at 13:56
--- NOTE | 2023-07-03 13:10 | DI.CT.S_ITS ---
PROCEDURE: CT CERVICAL SPINE WO CON INDICATIONS: FALL OFF LADDER, LOC TECHNIQUE: Noncontrast 3 mm thick sections acquired from the skull base to the T4 level. Sagittal and coronal reformats were then constructed. For radiation dose reduction, the following was used: automated exposure control, adjustment of mA and/or kV according to patient size. COMPARISON: None. FINDINGS: Image quality: Excellent. Bones: No fractures or dislocations. Visualized superior ribs are intact. Mild cervical spondylosis. Uncovertebral joint osteophyte on the right at C6-C7 results and at least moderate to severe foraminal narrowing. Soft tissues: Prevertebral soft tissues are normal in thickness. No paravertebral hematomas. No apical pneumothoraces. IMPRESSION: 1. No acute cervical fracture or dislocation. 2. Relatively mild cervical spondylosis. However, there is at least moderate to severe foraminal narrowing on the right at C6-C7. Dictated by: Judah Pickett M.D. on 07/03/2023 at 13:49 Approved by: Judah Pickett M.D. on 07/03/2023 at 13:54
--- NOTE | 2023-07-03 13:11 | ED_ITS ---
HPI - Fall General Chief Complaint: Fall Stated Complaint: [facility]/fell off ladder Time Seen by Provider: 07/03/23 13:06 Source: patient Mode of arrival: Ambulatory History of Present Illness HPI Narrative: 63yoF presents for back pain after falling off of the 3rd rung of a ladder. Patient misstepped and fell, displacing the ladder. Patient hit her lower back on the ladder and may have possibly passed out, but isn't sure. Denies use of blood thinners. She initially went to the walk-in clinic but was referred to the ER due to head injury. No medications taken prior to arrival. Last tetanus shot 4 years ago Related Data Home Medications Medication Instructions Recorded Confirmed iron 40 mg capsule 40 mg PO DAILY 05/12/23 06/10/23 Previous Rx's Medication Instructions Recorded fluticasone 250 mcg-salmeterol 50 1 inh inhalation Q12H #60 ea 06/16/22 mcg/dose blistr powdr for inhalation (Advair Diskus) Synthroid 100 mcg tablet 100 mcg PO DAILY #90 tabs 06/14/23 (levothyroxine) alendronate 70 mg tablet (Fosamax) 70 mg PO QWEEK #12 tabs 06/14/23 metformin 500 mg tablet,extended 500 mg PO DAILY #90 tabs 06/14/23 release 24 hr hydrocodone 5 mg-acetaminophen 325 1 tab PO Q8H PRN pain #7 tabs 07/03/23 mg tablet methocarbamol 500 mg tablet 500 mg PO TID #30 tabs 07/03/23 Allergies Allergy/AdvReac Type Severity Reaction Status Date / Time No Known Drug Allergies Allergy Verified 07/03/23 13:04 Review of Systems Review of Systems Narrative: negative except as noted above Patient History Medical History (Updated 07/03/23 @ 14:44 by Ana Huston MD) Dyslipidemia H/O healed fragility fracture Chronic pain of left knee Compression fracture of T8 vertebra Osteopenia Postprocedural hypothyroidism CKD (chronic kidney disease) stage 3, GFR 30-59 ml/min Anemia Postprocedural hypothyroidism Diabetes type 2, controlled Renal function test abnormal Hypothyroidism Family History Grandmother Hypertension Overweight Mother Age: 86 Pacemaker RA (rheumatoid arthritis) Social History marital status: household members: spouse lives independently: Yes occupational status: previously employed Smoking Status: Never smoker alcohol intake: current substance use type: does not use Smoking Status: Never smoker alcohol intake frequency: a few times a month Substance Use Type: does not use Exam Initial Vital Signs Initial Vital Signs: Vital Signs Temperature 98.8 F 07/03/23 12:57 Pulse Rate 60 07/03/23 12:57 Respiratory Rate 18 07/03/23 12:57 Blood Pressure 137/78 07/03/23 12:57 Pulse Oximetry 100 07/03/23 12:57 Oxygen Delivery Method Room Air 07/03/23 12:57 Const: Awake, alert, no acute distress, nontoxic appearing Eyes: PERRL, EOMI, conjunctiva normal ENT: Atraumatic, dentition normal, mucous membranes moist Cardiac: regular rate, regular rhythm RESP: unlabored, clear bilaterally, no wheezing GI: Atraumatic, soft, nontender, nondistended, no rebound, no guarding MSK: Atraumatic, full range of motion, pulses equal Skin: bruising over right lumbar back. Neuro: AO x3, CN II-XII grossly intact, moves all extremities Psych: affect normal, mood normal, not suicidal, not homicidal Course Course Course Narrative: Comfortable but nontoxic patient with midline lumbar tenderness and right-sided rib pain after falling off the 3rd rung of a ladder. Tetanus shot is up-to-date. Due to age, head trauma, mechanism we will order CT imaging of the brain and C-spine. Medications ordered for pain. Orders Ordered: ED Orders 07/03/23 13:10 CT cervical spine wo con Stat CT chest abd pel wo con Stat CT head/brain wo con Stat Discontinued Medications Oxycodone HCl (Oxycodone Ir 5 Mg Tablet) 5 mg PO NOW ONE Stop: 07/03/23 13:11 Last Admin: 07/03/23 13:15 Dose: 5 mg Documented By: RB Reevaluation(s) Reevaluation #1: CT imaging is negative for acute findings. There is mention of possible T5 compression fracture, however patient has no midline tenderness in the thoracic region, her pain is isolated over the lumbar region and there were no acute fractures on this level. Patient states she knows of multiple compression fractures in her spine that are old and are followed by her primary doctor. These fractures or why she takes weekly alendronate. Patient counseled on all imaging findings, short course of pain medications and muscle relaxers sent to pharmacy. Self care instructions discussed at bedside. Patient also has a friend with her at bedside who can take her home and help care for the patient at home. ED return precautions discussed at bedside. Patient expressed understanding of the plan and is in agreement at this time. All questions answered at the time of discharge. Vital Signs Vital signs: Vital Signs - 8 hr 07/03/23 12:57 07/03/23 13:14 07/03/23 13:14 Temperature 98.8 F Pulse Rate 60 64 Respiratory Rate 18 Blood Pressure 137/78 147/77 H Pulse Oximetry 100 100 Oxygen Delivery Method Room Air 07/03/23 13:53 07/03/23 13:54 07/03/23 13:54 Temperature Pulse Rate 59 L Respiratory Rate Blood Pressure 153/71 H Pulse Oximetry 100 99 Oxygen Delivery Method 07/03/23 14:00 07/03/23 14:00 07/03/23 14:30 Temperature Pulse Rate 60 57 L Respiratory Rate Blood Pressure 134/63 Pulse Oximetry 98 96 Oxygen Delivery Method 07/03/23 14:30 07/03/23 15:00 Temperature Pulse Rate 59 L Respiratory Rate Blood Pressure 128/70 Pulse Oximetry 100 Oxygen Delivery Method Discharge Plan Departure Patient Disposition: Home Clinical Impression: Fall from ladder Qualifiers: Encounter type: initial encounter Qualified Code(s): W11.XXXA - Fall on and from ladder, initial encounter Head injury Qualifiers: Encounter type: initial encounter Qualified Code(s): S09.90XA - Unspecified injury of head, initial encounter Back contusion Qualifiers: Encounter type: initial encounter Laterality: unspecified laterality Qualified Code(s): S20.229A - Contusion of unspecified back wall of thorax, initial encounter Instructions: DI for Contusion, How To Perform RICE (Rest, Ice, Compress, Elevate) Prescriptions: New methocarbamol 500 mg tablet 500 mg PO TID Qty: 30 0RF hydrocodone-acetaminophen 5-325 mg tablet 1 tab PO Q8H PRN (Reason: pain) Qty: 7 0RF No Action fluticasone propion-salmeterol [Advair Diskus] 250-50 mcg/dose blister with device 1 inh inhalation Q12H Qty: 60 2RF Patient Comments: not used in 1 year alendronate [Fosamax] 70 mg tablet 70 mg PO QWEEK Qty: 12 3RF metformin 500 mg tablet extended release 24 hr 500 mg PO DAILY Qty: 90 3RF levothyroxine [Synthroid] 100 mcg tablet 100 mcg PO DAILY Qty: 90 3RF iron 40 mg Capsule 40 mg PO DAILY Referrals: Polo Pizano ARNP [Primary Care Provider] - Stand Alone Forms: Patient Portal/API
[2023-07-03] MEDS: OXYCODONE IR 5 MG TABLET PO (13:15)
--- NOTE | 2023-07-03 14:14 | PC.NURSE ---
After triage this RN escorted patient to room and immediately informed provider of case. Provider at bedside [id number] performing assessment with this RN.
== END 2023-07-03 15:12 | disposition home or self-care (01) ==
PROVIDERS: Emergency Provider Emergency Medicine; PCP Registered Nurse Diabetes Educator
DX: S09.90XA Unspecified injury of head, initial encounter (principal); S30.0XXA Contusion of lower back and pelvis, initial encounter; W11.XXXA Fall on and from ladder, initial encounter
CPT/HCPCS: 70450; 71250; 72125; 74176; 99284

== ENCOUNTER → 2023-07-09 16:30 | Outpatient (CLI) | payer MEDICARE, OTHER, SELFPAY ==
--- NOTE | 2023-07-09 16:33 | DI.RAD.S_ITS ---
PROCEDURE: XR RIBS RT MIN 3V W CXR 1V INDICATIONS: Possible posterior rib fracture after a fall TECHNIQUE: 2 views of the right ribs were acquired, along with a single view chest. COMPARISON: None. FINDINGS: Surgical changes and devices: None. Bones and chest wall: Segmented right 9th rib fracture. Minimally displaced right 10th rib fracture.. No suspicious bony lesions. Overlying soft tissues appear unremarkable. Lungs and pleura: No pleural effusions or pneumothorax. Lungs appear clear. Mediastinum: Mediastinal contours appear normal. Heart size is normal. IMPRESSION: Right 9th and 10th rib fractures. No acute cardiopulmonary disease process. Dictated by: Aishwarya Borrero MD, PhD on 07/09/2023 at 17:00 Approved by: Aishwarya Borrero MD, PhD on 07/09/2023 at 17:02
--- NOTE | 2023-07-09 16:33 | DI.RAD.S_ITS ---
PROCEDURE: XR THORACIC SPINE 3V INDICATIONS: Possible acute fracture T5; hx of compression fractures TECHNIQUE: 3 views of the thoracic spine were acquired. COMPARISON: [facility], CR, XR THORACIC SPINE 3V, 11/04/2021, 9:35. FINDINGS: Bones: Loss of height noted in the T5 and T8 vertebral bodies compatible with compression fractures which are stable in appearance compared to November 04, 2021. No suspicious bony lesions. 12 pairs of ribs are noted, and appear intact where visualized. Soft tissues: No paravertebral stripe thickening. IMPRESSION: Chronic T5 and T8 compression fractures stable compared to November 04, 2021. No acute vertebral body compression fracture. Dictated by: Aishwarya Borrero MD, PhD on 07/09/2023 at 17:02 Approved by: Aishwarya Borrero MD, PhD on 07/09/2023 at 17:04
== END ==
PROVIDERS: PCP Registered Nurse Diabetes Educator; Referring Provider Physician Assistant; Visit Provider Physician Assistant
DX: S22.41XA Multiple fractures of ribs, right side, initial encounter for closed fracture (principal); M48.54XS Collapsed vertebra, not elsewhere classified, thoracic region, sequela of fracture; W11.XXXA Fall on and from ladder, initial encounter; S20.229A Contusion of unspecified back wall of thorax, initial encounter
CPT/HCPCS: 71101; 72072

== ENCOUNTER → 2023-11-27 07:14 | Outpatient (CLI) | payer MEDICARE, OTHER, SELFPAY ==
[2023-11-27 08:02] LABS: Hemoglobin A1C% w Est Avg Glu 5.8 % (4.0-6.0)
[2023-11-27 08:54] LABS: Cholesterol 229 mg/dL (140-199); HDL Cholesterol 91 mg/dL (40-60); LDL Cholesterol Calculated 119 mg/dL (<100); Triglycerides 96 mg/dL (35-150)
[2023-11-27 09:22] LABS: TSH w/ Reflex to FT4 1.81 uIU/mL (0.47-4.68)
== END ==
PROVIDERS: PCP Registered Nurse Diabetes Educator; Referring Provider Registered Nurse Diabetes Educator; Visit Provider Registered Nurse Diabetes Educator
DX: E11.9 Type 2 diabetes mellitus without complications (principal); E03.9 Hypothyroidism, unspecified; E78.5 Hyperlipidemia, unspecified
CPT/HCPCS: 36415; 80061; 83036; 84443

== ENCOUNTER → 2023-11-28 09:20 | Outpatient (CLI) | payer MEDICARE, OTHER, SELFPAY ==
--- NOTE | 2023-11-28 09:21 | DI.MRI.S_ITS ---
PROCEDURE: MR THORACIC SPINE WO CON INDICATIONS: Recurrent thoracic pain; hx of rib fx 9 10 R side TECHNIQUE: Noncontrast sagittal T1 spine echo and T2 fast spin echo, sagittal STIR, and T2 fast spin echo through the thoracic spine. COMPARISON: None. FINDINGS: Image quality: Excellent. Alignment and Curvature: There is normal bony alignment. Bone Marrow: Marrow is of normal overall signal. No acute vertebral body compression fractures. There are relatively mild chronic compressions of the superior endplate of T5, T7, T8, and T11. There is no bony retropulsion. There is no associated canal stenosis. Spinal Cord: Visualized spinal cord is normal in size and signal. Paraspinous Soft Tissues: No paravertebral masses. Miscellaneous: On axial images, central canal and foramina appear widely patent at all scanned levels. There is mild facet arthropathy at T9-T10 and T10-T11 bilaterally. IMPRESSION: 1. Multilevel chronic thoracic compression fractures suggest the patient may have severe osteoporosis. 2. No acute compression fractures. 3. No canal stenosis or foraminal stenosis. Comment: DEXA bone densitometry may be helpful. Dictated by: Judah Pickett M.D. on 11/30/2023 at 9:29 Approved by: Judah Pickett M.D. on 11/30/2023 at 9:34
== END ==
PROVIDERS: PCP Registered Nurse Diabetes Educator; Referring Provider Physician Assistant; Visit Provider Physician Assistant
DX: S22.050A Wedge compression fracture of T5-T6 vertebra, initial encounter for closed fracture (principal); S22.060A Wedge compression fracture of T7-T8 vertebra, initial encounter for closed fracture; M47.814 Spondylosis without myelopathy or radiculopathy, thoracic region; M85.80 Other specified disorders of bone density and structure, unspecified site; M54.6 Pain in thoracic spine; G89.29 Other chronic pain
CPT/HCPCS: 72146

== ENCOUNTER → 2024-03-02 07:12 | Outpatient (CLI) | payer MEDICARE, OTHER, SELFPAY ==
[2024-03-02 08:41] LABS: Hematocrit 37.3 % (36-46); Hemoglobin 12.7 g/dL (12.0-16.0); Mean Corpuscular HGB Conc 34.1 % (30-36); Mean Corpuscular Volume 90.9 fL (80-100); Platelet Count 236 X10^3/uL (150-400); Red Cell Distribution Width 12.8 % (11.6-14.8); White Blood Cell Count 5.1 X10^3/uL (4.5-11.0)
[2024-03-02 09:09] LABS: HEMOLYSIS < 15 (0-50); Iron 137 ug/dL (37-170)
[2024-03-02 09:14] LABS: Alanine Aminotransferase 19 IU/L (<35); Albumin 4.4 g/dL (3.5-5.0); Albumin Globulin Ratio 1.5 (1.0-2.8); Alkaline Phosphatase 66 U/L (38-126); Aspartate Aminotransferase 37 IU/L (14-36); BUN Creatinine Ratio 11.2 (6-22); Bilirubin Total 0.7 mg/dL (0.2-1.3); Blood Urea Nitrogen 12 mg/dL (7-17); Calcium 9.1 mg/dL (8.4-10.2); Carbon Dioxide 25 mmol/L (22-32); Chloride 107 mmol/L (98-107); Cholesterol 192 mg/dL (140-199); Estimated Glomerular Filt Rate 58 mL/min (>60); Glucose 88 mg/dL (80-110); HDL Cholesterol 106 mg/dL (40-60); HEMOLYSIS < 15 (0-50); LDL Cholesterol Calculated 74 mg/dL (<100); Potassium 4.6 mmol/L (3.4-5.1); Sodium 138 mmol/L (137-145); Total Protein 7.4 g/dL (6.3-8.2); Triglycerides 58 mg/dL (35-150)
[2024-03-02 09:21] LABS: Percent Iron Saturation 45 % (15-50); Total Iron Binding Capacity 307 ug/dL (265-497); Transferrin 250 mg/dL (206-381)
[2024-03-02 09:44] LABS: Ferritin 25 ng/mL (11-264)
== END ==
PROVIDERS: PCP Registered Nurse Diabetes Educator; Referring Provider Registered Nurse Diabetes Educator; Visit Provider Registered Nurse Diabetes Educator
DX: E03.9 Hypothyroidism, unspecified (principal); D64.9 Anemia, unspecified; E78.5 Hyperlipidemia, unspecified
CPT/HCPCS: 36415; 80053; 80061; 82728; 83540; 83550; 85027

== ENCOUNTER → 2024-06-10 13:31 | Outpatient (CLI) | payer MEDICARE, OTHER, SELFPAY ==
[2024-06-10 15:10] LABS: Alanine Aminotransferase 16 IU/L (<35); Albumin 4.3 g/dL (3.5-5.0); Albumin Globulin Ratio 1.7 (1.0-2.8); Alkaline Phosphatase 70 U/L (38-126); Aspartate Aminotransferase 31 IU/L (14-36); BUN Creatinine Ratio 12.6 (6-22); Bilirubin Total 0.4 mg/dL (0.2-1.3); Blood Urea Nitrogen 13 mg/dL (7-17); Calcium 9.5 mg/dL (8.4-10.2); Carbon Dioxide 24 mmol/L (22-32); Chloride 103 mmol/L (98-107); Estimated Glomerular Filt Rate > 60 mL/min (>60); Globulin 2.6 g/dL (1.7-4.1); Glucose 77 mg/dL (80-110); HEMOLYSIS < 15 (0-50); Potassium 4.1 mmol/L (3.4-5.1); Sodium 135 mmol/L (137-145); Total Protein 6.9 g/dL (6.3-8.2)
[2024-06-10 16:00] LABS: Creatinine Urine Random 34.88 mg/dL
[2024-06-10 16:06] LABS: Microalbumin Urine Random 0.9 mg/dL (0-1.6)
== END ==
LOC: LAB 13:32
PROVIDERS: PCP Registered Nurse Diabetes Educator; Referring Provider Registered Nurse Diabetes Educator; Visit Provider Registered Nurse Diabetes Educator
DX: N18.30 Chronic kidney disease, stage 3 unspecified (principal); E11.9 Type 2 diabetes mellitus without complications; E78.5 Hyperlipidemia, unspecified
CPT/HCPCS: 36415; 80053; 82043; 82570; 83036; 84443

== ENCOUNTER → 2024-11-28 07:01 | Outpatient (CLI) | payer MEDICARE, OTHER, SELFPAY ==
[2024-11-28 07:40] LABS: Hematocrit 38.5 % (36-46); Hemoglobin 13.1 g/dL (12.0-16.0); Platelet Count 227 X10^3/uL (150-400); Red Blood Cell Count 4.23 X10^6/uL (4.0-5.2); Red Cell Distribution Width 12.9 % (11.6-14.8); White Blood Cell Count 4.7 X10^3/uL (4.5-11.0)
[2024-11-28 07:53] LABS: Hemoglobin A1C% w Est Avg Glu 5.5 % (4.0-6.0)
[2024-11-28 08:00] LABS: Alanine Aminotransferase 16 IU/L (<35); Albumin 4.5 g/dL (3.5-5.0); Albumin Globulin Ratio 1.7 (1.0-2.8); Alkaline Phosphatase 58 U/L (38-126); Aspartate Aminotransferase 31 IU/L (14-36); BUN Creatinine Ratio 13.1 (6-22); Bilirubin Total 0.6 mg/dL (0.2-1.3); Blood Urea Nitrogen 14 mg/dL (7-17); Calcium 9.6 mg/dL (8.4-10.2); Carbon Dioxide 25 mmol/L (22-32); Chloride 104 mmol/L (98-107); Cholesterol 179 mg/dL (140-199); Estimated Glomerular Filt Rate 57 mL/min (>60); Globulin 2.7 g/dL (1.7-4.1); Glucose 99 mg/dL (80-110); HDL Cholesterol 87 mg/dL (40-60); HEMOLYSIS < 15 (0-50); LDL Cholesterol Calculated 77 mg/dL (<100); Sodium 136 mmol/L (137-145); Total Protein 7.2 g/dL (6.3-8.2); Triglycerides 77 mg/dL (35-150)
[2024-11-28 08:15] LABS: Vitamin D 25 Hydroxy (D3) 40.1 ng/mL (30.0-100.0)
[2024-11-28 08:29] LABS: TSH w/ Reflex to FT4 2.14 uIU/mL (0.47-4.68)
[2024-11-28 11:35] LABS: Creatinine Urine Random 58.26 mg/dL
[2024-11-28 11:40] LABS: Microalbumin Urine Random < 0.6 mg/dL (0-1.6)
== END ==
PROVIDERS: PCP Registered Nurse Diabetes Educator; Referring Provider Registered Nurse Diabetes Educator; Visit Provider Registered Nurse Diabetes Educator
DX: M85.80 Other specified disorders of bone density and structure, unspecified site (principal)
CPT/HCPCS: 36415; 80053; 80061; 82043; 82306; 82570; 83036; 84443; 85027

== ENCOUNTER → 2024-12-14 13:08 | Outpatient (CLI) | payer MEDICARE, OTHER, SELFPAY ==
--- NOTE | 2024-12-14 13:10 | DI.RAD.S_ITS ---
PROCEDURE: XR HIP W PEL IF DONE RT 2V INDICATIONS: eval R hip pain TECHNIQUE: AP pelvis with lateral view(s) of the right hip(s). COMPARISON: None. FINDINGS: Bones: No fractures or dislocations. Pelvic ring appears intact. No suspicious bony lesions. Soft tissues: The visualized bowel gas pattern is normal. No suspicious soft tissue calcifications. IMPRESSION: No acute bony abnormality. If there are persistent symptoms or clinical suspicion for pathology, then repeat radiographs or advanced imaging (CT or MRI) may be considered for further evaluation. Dictated by: Yony Ward M.D. on 12/14/2024 at 22:27 Approved by: Yony Ward M.D. on 12/14/2024 at 22:28
== END ==
PROVIDERS: PCP Registered Nurse Diabetes Educator; Referring Provider Registered Nurse Diabetes Educator; Visit Provider Registered Nurse Diabetes Educator
DX: M25.551 Pain in right hip (principal)
CPT/HCPCS: 73502

== ENCOUNTER → 2025-06-10 07:57 | Outpatient (CLI) | payer MEDICARE, OTHER, SELFPAY ==
[2025-06-10 09:46] LABS: Hemoglobin A1C% w Est Avg Glu 6.0 % (4.0-6.0)
== END ==
LOC: LAB 07:58
PROVIDERS: PCP Registered Nurse Diabetes Educator; Referring Provider Registered Nurse Diabetes Educator; Visit Provider Registered Nurse Diabetes Educator
DX: E11.9 Type 2 diabetes mellitus without complications (principal)
CPT/HCPCS: 36415; 83036